=== PATIENT | male | born 1940 | race Caucasian/White ===

== ENCOUNTER 2017-01-29 11:22 | Inpatient (IN) | payer MEDICARE ==
--- NOTE | 2017-01-29 14:01 | RAD ---
INDICATION: Unsteady gait COMPARISON: CT brain September 25, 2015 TECHNIQUE: Noncontrast axial source images were acquired from the skull base to the vertex. FINDINGS: Ventricles/sulci: The CSF spaces are prominent compatible with ex vacuo hydrocephalus.. Brain parenchyma: There is periventricular and subcortical white matter change compatible with chronic ischemia. Intracranial hemorrhage:None. Extra-axial spaces: There are no abnormal extra axial fluid collections or evidence of extra-axial mass. Calvarium: There is no calvarial fracture or other calvarial abnormality. Scalp: There is no evidence of scalp or extracalvarial soft tissue abnormality. Paranasal sinuses/mastoid: The paranasal sinuses and mastoid air cells are clear. Other: None. IMPRESSION: Atrophy with chronic microvascular ischemic changes. No acute intracranial findings
[2017-01-29 14:26] LABS: Hematocrit 38 % (42-52); Hemoglobin 12.6 g/dl (14.0-18.0); Mean Corpuscular HGB Conc 33 g/dl (31-36); Mean Corpuscular Hemoglobin 31 pg (27-31); Mean Corpuscular Volume 93 fL (80-94); Mean Platelet Volume 9 um3 (7.4-10.4); Red Blood Count 4.11 10^6/ul (4.0-5.4); Red Cell Distribution Width 14 % (10.5-15); White Blood Count 14.8 10^3/ul (3.5-10.8)
[2017-01-29 14:43] LABS: ALT 34 U/L (7-52); AST 25 U/L (13-39); Albumin 3.9 g/dL (3.2-5.2); Alkaline Phosphatase 65 U/L (34-104); Anion Gap 9 mmol/L (2-11); BUN/Creatinine Ratio 15.7 (8-20); Blood Urea Nitrogen 25 mg/dL (6-24); CO2 Carbon Dioxide 24 mmol/L (22-32); Calcium 9.3 mg/dL (8.6-10.3); Chloride 102 mmol/L (101-111); EGFR African American 54.4 (>60); EGFR Non-African American 42.3 (>60); Glucose 124 mg/dL (70-100); Sodium 135 mmol/L (133-145); Total Protein 7.9 g/dL (6.4-8.9)
[2017-01-29 15:01] LABS: Alcohol < 10 mg/dL (<10)
[2017-01-29 15:44] LABS: Troponin I 0.03 ng/mL (<0.04)
[2017-01-29] MEDS ORDERED: NS 0.9% 1000 ML* 1,000 ML IV ONE (15:51)
[2017-01-29] MEDS ORDERED: cefTRIAXone VIAL(*) 1,000 MG in NS 0.9% 50 ML* 50 ML IVPB ONE (16:44)
[2017-01-29 16:51] LABS: Benzodiazepine Urine Screen Presumptive Positive (None Detect)
--- NOTE | 2017-01-29 16:51 | RAD ---
INDICATION: Fever. COMPARISON: Comparison is made with a prior chest x-ray study from August 28, 2015. TECHNIQUE: A portable view of the chest was obtained. FINDINGS: Cardiac and mediastinal contours appear to be within normal limits. There is a patchy infiltrate at the right lung base. The left lung appears clear. No pleural effusion is seen. IMPRESSION: SMALL RIGHT BASILAR INFILTRATE.
[2017-01-29] MEDS ORDERED: Ondansetron INJ* 2 MG/ML VIAL IV PRN (17:32)
[2017-01-29] MEDS ORDERED: Acetaminophen TAB* 325 MG PO PRN (17:32)
[2017-01-29 18:10] LABS: TSH (Thyroid Stimulating Horm) 2.56 mcIU/mL (0.34-5.60)
[2017-01-29 18:18] LABS: Vitamin B12 > 1450 pg/mL (180-914)
[2017-01-29] MEDS: Azithromycin IV(*) 250 MG in NS 0.9% 250 ML* 250 ML IVPB SCH (20:30)
[2017-01-29] MEDS: Enoxaparin(*) 40 MG/0.4 ML SYR SUBCUT SCH (20:30)
--- NOTE | 2017-01-29 22:35 | HP ---
C: Dr. Mejia* ADMISSION HISTORY AND PHYSICAL: DATE OF ADMISSION: 01/29/17 PRIMARY CARE PROVIDER: Jason Mejia MD ADMITTING PROVIDER: SUSAN Arizmendi. SUPERVISING PHYSICIAN: John Glass MD* (dictated by SUSAN Arizmendi). CHIEF COMPLAINT: Weakness. HISTORY OF PRESENT ILLNESS: This is a 76-year-old gentleman with mild dementia , depression, history of prostate cancer who presented to the emergency department with complaints of weakness. He has become increasingly unsteady on his feet with complaints of weakness over the last several days. He has developed some recent urinary frequency and urgency and occasional incontinence when he is unable to make it to the restroom in time. He has had some occasional chills, but denies abdominal pain, nausea, vomiting, or diarrhea. No complaints of cough, chest pain, or shortness of breath. He also describes a numbness and tingling sensation in his lower legs, which is a new complaint as well. He denies any recent changes to home medications. PAST MEDICAL HISTORY: 1. Mild dementia. 2. Depression. 3. Prostate cancer. 4. Chronic kidney disease stage 3. PAST SURGICAL HISTORY: 1. Prostatectomy. 2. Hernia repair. 3. Hip replacement. 4. Left hand ORIF. HOME MEDICATIONS: 1. Aspirin 81 mg p.o. daily. 2. Vitamin B12 5000 mcg p.o. daily. 3. Aricept 10 mg p.o. daily. 4. Sertraline 200 mg p.o. daily. 5. Wellbutrin 200 mg p.o. daily. SOCIAL HISTORY: The patient lives at home with his . He has a smoking history, unsure of pack years, but quit about 30 years ago. He consumes 1 to 2 alcoholic beverages nightly. REVIEW OF SYSTEMS: As noted above in HPI. All other systems reviewed and negative. PHYSICAL EXAMINATION GENERAL: This is a very pleasant, elderly gentleman accompanied by his and daughter, in no acute distress. VITAL SIGNS: Initial vitals are temperature of 98.4 degrees Fahrenheit, pulse 88 beats per minute, respiratory rate 20 per minute, oxygen saturation 96% on room air, and blood pressure of 130/60 mmHg. Of note, maximum temperature in the emergency department reached to 100.4 degrees Fahrenheit. HEENT: Head is normocephalic and atraumatic. Mucous membranes are pink and moist. RESPIRATORY: Lungs are clear to auscultation. No crackles, wheezes, or rhonchi appreciated. CARDIOVASCULAR: Heart has a regular rate and rhythm without murmurs, rubs, or gallops. ABDOMEN: Soft and nontender to palpation. EXTREMITIES: No edema. There are some excoriations or superficial lacerations to the lower legs bilaterally. Distal pulses are intact. PSYCH: The patient is alert, appropriately oriented. Affect is appropriate to the situation. LABORATORY EVALUATION: CBC shows white blood cell count of 14,800, hemoglobin of 12.6 g/dL, and platelet count of 213,000. Comprehensive metabolic panel shows a sodium of 135, potassium of 4.0. Serum bicarb of 25. BUN 25, creatinine 1.59. Random glucose of 124. Total bilirubin and transaminases within normal limits. Troponin negative at 0.03. Urinalysis is pending. Urine toxicology screen is positive for amphetamine and benzodiazepine, but negative for alcohol. IMAGING: Chest x-ray demonstrates a right lower lobe infiltrate. ASSESSMENT AND PLAN: This is a 76-year-old gentleman with mild dementia, depression, chronic kidney disease, and history of prostate cancer who presents with his family with complaints of weakness and gait instability. He is noted to be febrile with a white blood cell count in the right lower lobe infiltrate on chest x-ray. The patient is being admitted for pneumonia. 1. Pneumonia - the patient has clear right lower lobe infiltrate with associated fever and leukocytosis although he does not have symptoms consistent with pneumonia. No cough or shortness of breath. No hypoxia noted. He does have urinary symptoms, which are new and a urinalysis is still pending at this time. We will empirically cover for community-acquired pneumonia with ceftriaxone and azithromycin at this time. No associated wheezing. Lactic acid and blood cultures are also pending. 2. Weakness and gait instability - this is likely secondary to his acute illness, but he also describes perhaps some neuropathy symptoms. We will check a TSH and B12 as a starting point there. We will request physical therapy evaluation as well. 3. Mild dementia - the patient is appropriate in the emergency department. We will plan to continue his donepezil and no significant behavioral concerns. 4. Depression - continue home SSRI and Wellbutrin. 5. Chronic kidney disease, creatinine appears to be near baseline. 6. Code status: The patient is full code. 7. Healthcare proxy is his . 8. DVT prophylaxis. The patient will be started on subcu Lovenox. 9. Disposition: The patient is being admitted to inpatient status with anticipated length of stay to be greater than 2 midnights. SUSAN ARIZMENDI [id number]/[facility] #: [id number] BRISEYDA
[2017-01-30 06:10] LABS: Hematocrit 33 % (42-52); Hemoglobin 11.1 g/dl (14.0-18.0); Mean Corpuscular HGB Conc 34 g/dl (31-36); Mean Corpuscular Hemoglobin 31 pg (27-31); Mean Corpuscular Volume 91 fL (80-94); Mean Platelet Volume 10 um3 (7.4-10.4); Red Blood Count 3.61 10^6/ul (4.0-5.4); Red Cell Distribution Width 14 % (10.5-15); White Blood Count 12.7 10^3/ul (3.5-10.8)
[2017-01-30 06:21] LABS: BUN/Creatinine Ratio 16.7 (8-20); Calcium 8.6 mg/dL (8.6-10.3); EGFR African American 67.5 (>60); EGFR Non-African American 52.5 (>60); Potassium 3.9 mmol/L (3.5-5.0)
[2017-01-30] MEDS: Donepezil TAB* 5 MG PO SCH (08:35)
[2017-01-30] MEDS: Sertraline* 100 MG TAB PO SCH (08:35)
[2017-01-30] MEDS: Aspirin EC Low Dose* 81 MG TAB.EC PO SCH (08:35)
[2017-01-30] MEDS: buPROPion SR TAB.SR* 200 MG PO SCH (08:35)
[2017-01-30] MEDS ORDERED: Influenza VAC *QUAD* 2017-18* 0.5 ML SYRINGE IM ONE (09:00)
[2017-01-30] MEDS ORDERED: Magnesium CITRATE* 300 ML BTL PO ONE (10:06)
--- NOTE | 2017-01-30 10:13 | PN ---
Subjective Date of Service: 01/30/17 Interval History: Patient seen and examined at bedside. Patient denies SOB or cough. He states he hasn't walked in 2 days. He also states he hasn't had a BM in 5 days. Family History: Unchanged from Admission Social History: Unchanged from Admission Past Medical History: Unchanged from Admission Objective Active Medications: Acetaminophen (Tylenol Tab*) 650 mg PO Q4H PRN Aspirin (Aspirin Ec Low Dose*) 81 mg PO DAILY MING Bupropion HCl (Wellbutrin Sr Tab*) 200 mg PO DAILY [facility]ING Donepezil HCl (Aricept Tab*) 10 mg PO DAILY [facility] Enoxaparin Sodium (Lovenox(*)) 40 mg SUBCUT Q24H MING Ceftriaxone Sodium 1,000 mg/ (Sodium Chloride) 50 mls @ 200 mls/hr IVPB Q24H MING Azithromycin 250 mg/ Sodium (Chloride) 250 mls @ 250 mls/hr IVPB Q24H MING Magnesium Citrate (Citrate Of Magnesia*) 300 ml PO ONCE ONE Ondansetron HCl (Zofran Inj*) 4 mg IV Q4H PRN Sertraline HCl (Zoloft*) 200 mg PO DAILY [facility] 01/29/17 01/30/17 01/30/17 22:16 02:58 07:54 Temperature 99.0 F 98.2 F 98.4 F Pulse Rate 93 83 68 Respiratory 20 16 18 Rate Blood Pressure 143/56 148/49 137/54 (mmHg) O2 Sat by Pulse 94 95 98 Oximetry Oxygen Devices in Use Now: None Appearance: sitting up in bed, NAD Eyes: No Scleral Icterus, PERRLA Ears/Nose/Mouth/Throat: NL Teeth, Lips, Gums Neck: NL Appearance and Movements; NL JVP Respiratory: Symmetrical Chest Expansion and Respiratory Effort, Clear to Auscultation Cardiovascular: NL Sounds; No Murmurs; No JVD, RRR Abdominal: NL Sounds; No Tenderness; No Distention Extremities: No Edema Skin: No Rash or Ulcers Neurological: Alert and Oriented x 3, NL Muscle Strength and Tone Lines/Tubes/Other Access: Clean, Dry and Intact Peripheral IV Nutrition: Taking PO's Result Diagrams: 01/30/17 05:36 01/30/17 05:36 Assess/Plan/Problems-Billing Patient is a 76 y/o M w/ hx of CKD and mild dementia who presented to the ER w/ the c/o of weakness found to have RLL pneumonia. - Patient Problems (1) Pneumonia Comment: Continue Ceftriaxone and Zithromax. Patient is on room air. Will mobilize. Leukocytosis improved. (2) Weakness Comment: Likely from PNA or possible UTI (Awaiting UA). Will need PT eval. (3) Urinary frequency Comment: UA pending. Abx for PNA would cover most organisms. (4) Dementia Comment: Continue Wellbutrin and Aricept. (5) CKD (chronic kidney disease) Comment: Creatinine at baseline. (6) DVT prophylaxis Comment: Lovenox (7) Full code status Status and Disposition: Inpatient for RLL PNA. Will need PT eval to assess ambulation prior to discharge.
[2017-01-30 15:40] LABS: Urine Bilirubin Negative (Negative); Urine Glucose Negative (Negative); Urine Nitrite Negative (Negative)
[2017-01-30] MEDS: cefTRIAXone VIAL(*) 1,000 MG in NS 0.9% 50 ML* 50 ML IVPB SCH (17:35)
[2017-01-30] MEDS: Enoxaparin(*) 40 MG/0.4 ML SYR SUBCUT SCH (17:59)
[2017-01-30] MEDS: Azithromycin IV(*) 250 MG in NS 0.9% 250 ML* 250 ML IVPB SCH (18:01)
--- NOTE | 2017-01-30 18:18 | ED ---
Froylan Parks Angela, scribed for Robi Downs MD on 01/29/17 at 1550 . Neurological HPI - HPI Summary HPI Summary: This pt is a 76 y/o male accompanied by his presenting to [facility] c/o unsteady gait for a while now, worsening over the past 3 days. Per , pt's symptoms began with a shuffle walk and was able to walk. Per , the pt has been unable to walk with walker and cane due to weakness. Pt's symptoms began after physical therapy 2 days ago, the pt felt very tired and was unable to go to the bathroom. reports the pt couldn't even stand up and has had urinary incontinence. Pt's neurologist is Dr. Lara. Pt has been diagnosed with early stage Alzheimer's disease. Pt denies blurry vision, chest pain, SOB, fever. - History of Current Complaint Chief Complaint: EDGeneral Stated Complaint: BALANCE OFF Time Seen by Provider: 01/29/17 15:42 Hx Obtained From: Patient, Family/Electromechanical Technologist - Onset/Duration: Started days ago - 3 Neurological Deficit Location: Generalized - weakness, unsteady gait Pain Intensity: 0 Character: Weak - overall weakness - Allergy/Home Medications Allergies/Adverse Reactions: Allergies Allergy/AdvReac Type Severity Reaction Status Date / Time No Known Drug Allergy Allergy See Comment Verified 01/29/17 17:47 NO MRIs - METAL IN Lt EYE Allergy NO MRIs - Uncoded 01/02/17 11:31 METAL IN Lt EYE Home Medications: Home Medications Aspirin EC Low Dose* [Ecotrin EC Low Dose 81 MG*] 81 mg PO DAILY 01/29/17 [ History Confirmed 01/29/17] Cyanocobalamin [Vitamin B-12] 5,000 mcg PO DAILY 01/29/17 [History Confirmed ] Donepezil TAB* [Aricept 5 MG TAB*] 10 mg PO DAILY 01/29/17 [History Confirmed ] Sertraline* [Zoloft*] 200 mg PO DAILY 01/29/17 [History Confirmed 01/29/17] buPROPion SR TAB* [Wellbutrin SR TAB*] 200 mg PO DAILY 01/29/17 [History Confirmed 01/29/17] PMH/Surg Hx/FS Hx/Imm Hx Endocrine/Hematology History: Denies: Hx Diabetes, Hx Systemic Lupus Erythematosus Cardiovascular History: Denies: Hx Congestive Heart Failure, Hx Hypertension, Hx Pacemaker/ICD History: Reports: Other Problems/Disorders - HX OF PROSTATE SURGERY Denies: Hx Dialysis, Hx Renal Disease Musculoskeletal History: Reports: Hx Arthritis - RIGHT HIP Denies: Hx Rheumatoid Arthritis Sensory History: Reports: Hx Contacts or Glasses - GLASSES, Hx Glaucoma Denies: Hx Hearing Aid - HARD OF HEARING Opthamlomology History: Reports: Hx Contacts or Glasses - GLASSES, Hx Glaucoma Neurological History: Reports: Other Neuro Impairments/Disorders - very hard of hearing Psychiatric History: Reports: Hx Anxiety - CONTROL WITH MEDS, Hx Depression - ON MEDS Denies: Hx Panic Disorder - Cancer History Cancer Type, Location and Year: prostate CA Hx Chemotherapy: No - Surgical History Surgery Procedure, Year, and Place: prostatectomy,. R inguinal hernia repair,. R hip replacement Xs 2. SKIN CANCER - REMOVED - [facility] Hx Anesthesia Reactions: No Infectious Disease History: Yes Infectious Disease History: Denies: Traveled Outside the [place] in Last 30 Days - Social History Alcohol Use: Daily Alcohol Amount: vodka and OJ x 1 per night Substance Use Type: Reports: None Smoking Status (MU): Former Smoker Type: Cigarettes Amount Used/How Often: 1 PPD Length of Time of Smoking/Using Tobacco: 25 YEARS Have You Smoked in the Last Year: No Review of Systems Negative: Fever, Chills Negative: Blurred Vision Negative: Chest Pain Negative: Shortness Of Breath Gastrointestinal: Negative Positive: other - urinary incontinence Neurological: Other - unsteady gait Positive: Weakness - generalized All Other Systems Reviewed And Are Negative: Yes Physical Exam - Summary Physical Exam Summary: VITAL SIGNS: Reviewed. GENERAL: Patient is a well-developed and nourished male who is lying comfortable in the stretcher. Patient is not in any acute respiratory distress. HEAD AND FACE: No signs of trauma. No ecchymosis, hematomas or skull depressions. No sinus tenderness. EYES: PERRLA, EOMI x 2, No injected conjunctiva, no nystagmus. No photophobia. EARS: Hearing grossly intact. Ear canals and tympanic membranes are within normal limits. MOUTH: Oropharynx within normal limits. NECK: Supple, trachea is midline, no adenopathy, no JVD, no carotid bruit, no c- spine tenderness, neck with full ROM. No meningeal signs, no Kernig's or brudzinskis signs. CHEST: Symmetric, no tenderness at palpation LUNGS: Clear to auscultation bilaterally. No wheezing or crackles. CVS: Regular rate and rhythm, S1 and S2 present, no murmurs or gallops appreciated. ABDOMEN: Soft, non-tender. No signs of distention. No rebound no guarding, and no masses palpated. Bowel sounds are normal. EXTREMITIES: FROM in all major joints, no edema, no cyanosis or clubbing. NEURO: Alert and oriented x 3. No acute neurological deficits. Speech is normal and follows commands. Unsteady gait. SKIN: Dry and warm GCS: 15 (unless he states otherwise) Triage Information Reviewed: Yes Vital Signs On Initial Exam: Initial Vitals Temp Pulse Resp BP Pulse Ox 98.4 F 88 20 130/60 96 01/29/17 11:36 01/29/17 11:36 01/29/17 11:36 01/29/17 11:36 01/29/17 11:36 Vital Signs Reviewed: Yes Diagnostics - Vital Signs Vital Signs Temp Pulse Resp BP Pulse Ox 01/29/17 15:14 100.1 F 88 24 121/57 94 01/29/17 12:39 99.7 F 86 20 138/91 100 01/29/17 11:36 98.4 F 88 20 130/60 96 - Laboratory Lab Results: Lab Results 01/29/17 01/29/17 01/29/17 Range/Units 14:16 14:16 14:16 WBC 14.8 H (3.5-10.8) 10^3/ul RBC 4.11 (4.0-5.4) 10^6/ul Hgb 12.6 L (14.0-18.0) g/dl Hct 38 L (42-52) % MCV 93 (80-94) fL MCH 31 (27-31) pg MCHC 33 (31-36) g/dl RDW 14 (10.5-15) % Plt Count 213 (150-450) 10^3/ul MPV 9 (7.4-10.4) um3 Neut % (Auto) 86.2 H (38-83) % Lymph % (Auto) 4.7 L (25-47) % [place] % (Auto) 8.4 (1-9) % Eos % (Auto) 0.4 (0-6) % Baso % (Auto) 0.3 (0-2) % Absolute Neuts (auto) 12.8 H (1.5-7.7) 10^3/ul Absolute Lymphs (auto) 0.7 L (1.0-4.8) 10^3/ul Absolute Monos (auto) 1.2 H (0-0.8) 10^3/ul Absolute Eos (auto) 0.1 (0-0.6) 10^3/ul Absolute Basos (auto) 0 (0-0.2) 10^3/ul Absolute Nucleated RBC 0.01 10^3/ul Nucleated RBC % 0 INR (Anticoag Therapy) 1.01 (0.89-1.11) Sodium 135 (133-145) mmol/L Potassium 4.0 (3.5-5.0) mmol/L Chloride 102 (101-111) mmol/L Carbon Dioxide 24 (22-32) mmol/L Anion Gap 9 (2-11) mmol/L BUN 25 H (6-24) mg/dL Creatinine 1.59 H (0.67-1.17) mg/dL Est GFR ( Amer) 54.4 (>60) Est GFR (Non-Af Amer) 42.3 (>60) BUN/Creatinine Ratio 15.7 (8-20) Glucose 124 H (70-100) mg/dL Calcium 9.3 (8.6-10.3) mg/dL Total Bilirubin 0.80 (0.2-1.0) mg/dL AST 25 (13-39) U/L ALT 34 (7-52) U/L Alkaline Phosphatase 65 (34-104) U/L Troponin I Pending Total Protein 7.9 (6.4-8.9) g/dL Albumin 3.9 (3.2-5.2) g/dL Globulin 4.0 (2-4) g/dL Albumin/Globulin Ratio 1.0 (1-3) Serum Alcohol < 10 (<10) mg/dL Result Diagrams: 01/29/17 14:16 01/29/17 14:16 Lab Statement: Any lab studies that have been ordered have been reviewed, and results considered in the medical decision making process. - Radiology Chest XR Xray Interpretation: Positive (See Comments) - IMPRESSION: Small right basilar infiltrate. ED physician has reviewed this radiology report and agrees. Radiology Interpretation Completed By: Radiologist - CT Brain CT CT Interpretation: No Acute Changes - IMPRESSION: Atrophy with chronic microvascular ischemic changes. No acute intracranial findings. ED physician has reviewed this radiology report and agrees. CT Interpretation Completed By: Radiologist Course/Dx - Course Assessment/Plan: This pt is a 76 y/o male accompanied by his presenting to [facility] c/o unsteady gait for a while now, worsening over the past 3 days. Per , pt's symptoms began with a shuffle walk and was able to walk. Per , the pt has been unable to walk with walker and cane due to weakness. Pt's symptoms began after physical therapy 2 days ago, the pt felt very tired and was unable to go to the bathroom. reports the pt couldn't even stand up and has had urinary incontinence. Pt's neurologist is Dr. Lara. Pt has been diagnosed with early stage Alzheimer's disease. Pt denies blurry vision, chest pain, SOB, fever. Test results without any significant abnormalities except for WBC of 14.8 without bands. BUN of 25, creatinine of 1.59, glucose of 124. Chest XR shows right lower lobe pneumonia, for which the pt was started on ciprofloxacin and azithromycin. Head CT shows: atrophy with chronic microvascular ischemic changes. No acute intracranial findings. I discussed the pts case with Ms. Simpson, who spoke with Dr. Glass and accepted the pt for admission. - Diagnoses Provider Diagnoses: Pneumonia, UTI (urinary tract infection), Weakness, Unsteady gait - Physician Notifications Discussed Care Of Patient With: Rolan Maldonado Time Discussed With Above Provider: 16:05 Instructed by Provider To: Other - I discussed the pt's case with Dr. Maldonado, from neurology. He will come see the pt in the ED. 16:34 - I spoke with SUSAN Alvarado, who spoke with Dr. Glass and accepted the pt for admission. Discharge - Discharge Plan Condition: Stable Disposition: ADMITTED TO [facility] documentation as recorded by the Froylan cunningham Angela accurately reflects the service I personally performed and the decisions made by me, Robi Downs MD.
[2017-01-30] MEDS ORDERED: Bisacodyl SUPP* 10 MG SUPP PR PRN (18:29)
[2017-01-30] MEDS ORDERED: Sodium Phosphate ADULT ENEMA* 118 ml bottle PR PRN (18:29)
[2017-01-30] MEDS: Senna TAB PO SCH (21:06)
[2017-01-30] MEDS: Polyethylene Glycol 3350* 17 GM PACKET PO SCH (21:06)
[2017-01-30] MEDS: Docusate CAP* 100 MG PO SCH (21:07)
[2017-01-31 07:05] LABS: Hematocrit 34 % (42-52); Hemoglobin 11.4 g/dl (14.0-18.0); Mean Corpuscular HGB Conc 34 g/dl (31-36); Mean Corpuscular Hemoglobin 31 pg (27-31); Mean Corpuscular Volume 92 fL (80-94); Mean Platelet Volume 10 um3 (7.4-10.4); Red Blood Count 3.65 10^6/ul (4.0-5.4); Red Cell Distribution Width 14 % (10.5-15); White Blood Count 9.4 10^3/ul (3.5-10.8)
[2017-01-31 07:15] LABS: Calcium 8.7 mg/dL (8.6-10.3); EGFR African American 70.5 (>60); EGFR Non-African American 54.8 (>60); Potassium 3.9 mmol/L (3.5-5.0)
[2017-01-31] MEDS: buPROPion SR TAB.SR* 200 MG PO SCH (09:11)
[2017-01-31] MEDS: Docusate CAP* 100 MG PO SCH ×2 (09:11→20:23)
[2017-01-31] MEDS: Aspirin EC Low Dose* 81 MG TAB.EC PO SCH (09:12)
[2017-01-31] MEDS: Donepezil TAB* 5 MG PO SCH (09:12)
[2017-01-31] MEDS: Sertraline* 100 MG TAB PO SCH (09:13)
[2017-01-31] MEDS: Polyethylene Glycol 3350* 17 GM PACKET PO SCH (09:14)
[2017-01-31] MEDS ORDERED: Magnesium CITRATE* 300 ML BTL PO ONE (12:19)
--- NOTE | 2017-01-31 13:48 | PN ---
Subjective Date of Service: 01/31/17 Interval History: Seen sitting up in the chair with his at bedside. He complains of constipation x 5 days, which is not normal for him, but denies nausea, vomiting , or abdominal pain. He and his report that he only walked to the doorway with PT, and that he still feels much weaker than baseline, and too unsteady to go home today. 14-point ROS is otherwise negative. Family History: Unchanged from Admission Social History: Unchanged from Admission Past Medical History: Unchanged from Admission Objective Active Medications: Acetaminophen (Tylenol Tab*) 650 mg PO Q4H PRN PRN Reason: FEVER/PAIN Aspirin (Aspirin Ec Low Dose*) 81 mg PO DAILY [facility] Last Admin: 01/31/17 09:12 Dose: 81 mg Bisacodyl (Dulcolax Supp*) 10 mg [place] DAILY PRN PRN Reason: CONSTIPATION Bupropion HCl (Wellbutrin Sr Tab*) 200 mg PO DAILY [facility] Last Admin: 01/31/17 09:11 Dose: 200 mg Docusate Sodium (Colace Cap*) 100 mg PO BID [facility] Last Admin: 01/31/17 09:11 Dose: 100 mg Donepezil HCl (Aricept Tab*) 10 mg PO DAILY [facility] Last Admin: 01/31/17 09:12 Dose: 10 mg Enoxaparin Sodium (Lovenox(*)) 40 mg SUBCUT Q24H [facility] Last Admin: 01/30/17 17:59 Dose: 40 mg Ceftriaxone Sodium 1,000 mg/ (Sodium Chloride) 50 mls @ 200 mls/hr IVPB Q24H [facility] Last Admin: 01/30/17 17:35 Dose: 200 mls/hr Azithromycin 250 mg/ Sodium (Chloride) 250 mls @ 250 mls/hr IVPB Q24H [facility] Last Admin: 01/30/17 18:01 Dose: 250 mls/hr Ondansetron HCl (Zofran Inj*) 4 mg IV Q4H PRN PRN Reason: NAUSEA/VOMITING Polyethylene Glycol/Electrolytes (Miralax*) 17 gm PO DAILY [facility] Last Admin: 01/31/17 09:14 Dose: 17 gm Senna (Senokot Tab*) 2 tab PO BEDTIME [facility] Last Admin: 01/30/17 21:06 Dose: 2 tab Sertraline HCl (Zoloft*) 200 mg PO DAILY [facility] Last Admin: 01/31/17 09:13 Dose: 200 mg Sodium Biphosphate/Sodium Phosphate (Fleet Enema*) 1 bottle [place] DAILY PRN PRN Reason: CONSTIPATION Vital Signs 01/30/17 01/30/17 01/30/17 15:19 19:24 20:00 Temperature 97.4 F Pulse Rate 84 83 Respiratory 16 20 16 Rate Blood Pressure 124/60 122/34 (mmHg) O2 Sat by Pulse 93 93 Oximetry 01/30/17 01/31/17 01/31/17 23:35 03:20 07:34 Temperature 98.3 F 98.9 F 98.2 F Pulse Rate 93 80 71 Respiratory 16 18 16 Rate Blood Pressure 142/73 124/46 125/58 (mmHg) O2 Sat by Pulse 94 91 94 Oximetry 01/31/17 01/31/17 08:00 12:15 Temperature 98.1 F Pulse Rate 78 Respiratory 16 17 Rate Blood Pressure 121/71 (mmHg) O2 Sat by Pulse 96 Oximetry Oxygen Devices in Use Now: None Appearance: alert, well appearing Eyes: No Scleral Icterus, PERRLA Ears/Nose/Mouth/Throat: NL Teeth, Lips, Gums, Clear Oropharnyx Neck: NL Appearance and Movements; NL JVP Respiratory: Symmetrical Chest Expansion and Respiratory Effort, - - rhonchi R mid lung to base Cardiovascular: NL Sounds; No Murmurs; No JVD, RRR Abdominal: NL Sounds; No Tenderness; No Distention, No Hepatosplenomegaly Lymphatic: No Cervical Adenopathy, No Axillary Adenopathy Extremities: No Edema Skin: No Rash or Ulcers Neurological: Alert and Oriented x 3 Result Diagrams: 01/31/17 06:20 01/31/17 06:20 Additional Lab and Data: Lab Results 01/29/17 01/29/17 01/29/17 Range/Units 14:16 14:16 14:16 WBC 14.8 H (3.5-10.8) 10^3/ul RBC 4.11 (4.0-5.4) 10^6/ul Hgb 12.6 L (14.0-18.0) g/dl Hct 38 L (42-52) % MCV 93 (80-94) fL MCH 31 (27-31) pg MCHC 33 (31-36) g/dl RDW 14 (10.5-15) % Plt Count 213 (150-450) 10^3/ul MPV 9 (7.4-10.4) um3 Neut % (Auto) 86.2 H (38-83) % Lymph % (Auto) 4.7 L (25-47) % [place] % (Auto) 8.4 (1-9) % Eos % (Auto) 0.4 (0-6) % Baso % (Auto) 0.3 (0-2) % Absolute Neuts (auto) 12.8 H (1.5-7.7) 10^3/ul Absolute Lymphs (auto) 0.7 L (1.0-4.8) 10^3/ul Absolute Monos (auto) 1.2 H (0-0.8) 10^3/ul Absolute Eos (auto) 0.1 (0-0.6) 10^3/ul Absolute Basos (auto) 0 (0-0.2) 10^3/ul Absolute Nucleated RBC 0.01 10^3/ul Nucleated RBC % 0 INR (Anticoag Therapy) 1.01 (0.89-1.11) Sodium 135 (133-145) mmol/L Potassium 4.0 (3.5-5.0) mmol/L Chloride 102 (101-111) mmol/L Carbon Dioxide 24 (22-32) mmol/L Anion Gap 9 (2-11) mmol/L BUN 25 H (6-24) mg/dL Creatinine 1.59 H (0.67-1.17) mg/dL Est GFR ( Amer) 54.4 (>60) Est GFR (Non-Af Amer) 42.3 (>60) BUN/Creatinine Ratio 15.7 (8-20) Glucose 124 H (70-100) mg/dL Calcium 9.3 (8.6-10.3) mg/dL Total Bilirubin 0.80 (0.2-1.0) mg/dL AST 25 (13-39) U/L ALT 34 (7-52) U/L Alkaline Phosphatase 65 (34-104) U/L Troponin I Pending Total Protein 7.9 (6.4-8.9) g/dL Albumin 3.9 (3.2-5.2) g/dL Globulin 4.0 (2-4) g/dL Albumin/Globulin Ratio 1.0 (1-3) Serum Alcohol < 10 (<10) mg/dL Microbiology and Other Data: Microbiology 01/30/17 05:36 Aerobic Blood Culture - Preliminary Blood Venous No Growth Day 1 Anaerobic Blood Culture - Preliminary No Growth Day 1 01/29/17 17:27 Aerobic Blood Culture - Preliminary Blood Venous No Growth Day 1 Anaerobic Blood Culture - Preliminary No Growth Day 1 Assess/Plan/Problems-Billing Patient is a 76 y/o M w/ hx of CKD and mild dementia who presented to the ER w/ the c/o of weakness found to have RLL pneumonia. 1. Community acquired pneumonia continue ceftriaxone/azithromycin, today is day 3 of 5. Can be switched to PO levaquin at discharge. 2. Weakness Unable to discharge today due to inability to walk further than door. Appreciate PT re-evaluation. 3. Constipation No evidence of obstruction. Likely related to dehydration and immobilization. Encourage ambulation and PO fluid intake; try mag citrate today. If unsuccessful can try lactulose. 4. Dementia, noted. continue aricept 5. CKD, at baseline 6. Dispo--awaiting PT re-evaluation and bowel movement Status and Disposition: Inpatient for RLL PNA. Will need PT eval to assess ambulation prior to discharge.
[2017-01-31] MEDS: cefTRIAXone VIAL(*) 1,000 MG in NS 0.9% 50 ML* 50 ML IVPB SCH (17:24)
[2017-01-31] MEDS: Enoxaparin(*) 40 MG/0.4 ML SYR SUBCUT SCH (17:28)
[2017-01-31] MEDS: Azithromycin IV(*) 250 MG in NS 0.9% 250 ML* 250 ML IVPB SCH (17:51)
[2017-01-31] MEDS: Senna TAB PO SCH (20:24)
[2017-02-01 07:46] VITALS: BP 107/51
--- NOTE | 2017-02-01 08:20 | DCNOTE ---
Patient seen this morning. Says he feels well. Ambulated around the hallway yesterday with no issues. Had large BM. Ready to go home. On exam, RRR, s1 and s2 present, no m/g/r, lungs CTA B/L, abd soft, NTND, BS+, no LE edema Plan to discharge home to complete outpatient ABx for CAP. Home PT.
[2017-02-01] MEDS: Sertraline* 100 MG TAB PO SCH (09:41)
[2017-02-01] MEDS: Donepezil TAB* 5 MG PO SCH (09:42)
[2017-02-01] MEDS: Docusate CAP* 100 MG PO SCH (09:42)
[2017-02-01] MEDS: Aspirin EC Low Dose* 81 MG TAB.EC PO SCH (09:42)
[2017-02-01] MEDS: buPROPion SR TAB.SR* 200 MG PO SCH (09:42)
[2017-02-01] MEDS: Polyethylene Glycol 3350* 17 GM PACKET PO SCH (09:42)
--- NOTE | 2017-02-02 06:48 | DS ---
CC: Jason Mejia MD * DISCHARGE SUMMARY: DATE OF ADMISSION: 01/29/17 DATE OF DISCHARGE: 02/01/17 PRIMARY CARE PHYSICIAN: Jason Mejia MD PRINCIPAL DISCHARGE DIAGNOSIS: Community-acquired pneumonia. SECONDARY DIAGNOSES: 1. Mild dementia. 2. Depression. 3. Prostate cancer. 4. Chronic kidney disease stage 3. STUDIES DONE DURING HOSPITALIZATION: 1. Chest x-ray. Impression: Small right basilar infiltrate. 2. CT of the brain without contrast. Impression: Atrophy with chronic microvascular ischemic changes. No acute intracranial findings. DISCHARGE MEDICATION REGIMEN: 1. Cefpodoxime 200 mg by mouth 2 times daily. 2. Azithromycin 250 mg by mouth daily. 3. Sertraline 200 mg by mouth daily. 4. Bupropion 200 mg by mouth daily. 5. Donepezil 10 mg by mouth daily. 6. Vitamin B12 5000 mcg by mouth daily. 7. Aspirin 81 mg by mouth daily. HISTORY OF PRESENT ILLNESS AND HOSPITAL SUMMARY: Please see the full history and physical by SUSAN Alvarado, for full details. Briefly, Mr. Warner is a 76- year-old male with a past medical history as above, who presented to the hospital with weakness, unsteadiness, as well as low-grade fever. The patient was found to have evidence of pneumonia on chest x-ray. He also had a significant leukocytosis. He was started on IV antibiotics with improvement in his symptoms. Over the following days, his weakness resolved. He was able to ambulate around the unit with the help of a walker. He had some mild CHRIS on top of his chronic kidney disease, which resolved over the course of the admission as well. The patient was discharged home after he did well with physical therapy, and had a large bowel movement after a few days of being constipated. He will continue outpatient PT and follow up with his PCP. TIME SPENT: Total time spent on this discharge, 40 minutes. This is a summary of the hospitalization. Please see the full medical record for further details. [id number] #: [id number] MTDD
== END 2017-02-01 10:45 | disposition home or self-care (01) | DRG 194 ==
LOC: ED 11:22 → MED 16:46
PROVIDERS: ADMIT Internal Medicine; ATTEND Hospitalist
DX: J18.9 Pneumonia, unspecified organism (principal); N17.9 Acute kidney failure, unspecified; F03.90 Unspecified dementia, unspecified severity, without behavioral disturbance, psychotic disturbance, mood disturbance, and anxiety; F32.9 Major depressive disorder, single episode, unspecified; N18.3 Chronic kidney disease, stage 3 (moderate); K59.00 Constipation, unspecified; Z96.649 Presence of unspecified artificial hip joint; Z79.82 Long term (current) use of aspirin; Z79.899 Other long term (current) drug therapy; Z87.891 Personal history of nicotine dependence; Z85.46 Personal history of malignant neoplasm of prostate
CPT/HCPCS: 36415; 70450; 71010; 80048; 80053; 80307; 80320; 81003; 82607; 83605; 84443; 84484; 85025; 85610; 87040; 90686; A9270-GY; G0480; J0456; J0696; J1650